=== PATIENT | female | born 1985 | race Hispanic/Latino ===

== ENCOUNTER 2019-09-21 11:43 | Observation (INO) | payer OTHER ==
[~2019-09-21] VITALS: Ht 157.5 cm; Wt 83.0 kg
[2019-09-21 12:33] VITALS: BP 112/72
[2019-09-21 13:05] LABS: HEMATOCRIT 27.8 % (36-48); MEAN CORPUSCULAR HEMOGLOBIN 20.7 pg (27.0-33.0); MEAN CORPUSCULAR HGB CONC 28.4 g/dL (32.0-36.0); MEAN CORPUSCULAR VOLUME 72.8 fL (79-99); PLATELET COUNT (AUTO) 332 K/uL (130-400); RED BLOOD CELL COUNT(AUTO) 3.82 MIL/uL (4.00-5.50); RED CELL DISTRIBUTION WIDTH 16.7 % (11.0-15.5); WHITE BLOOD COUNT (AUTO) 7.7 K/uL (4.8-10.8)
--- NOTE | 2019-09-21 13:56 | NUR ---
SPOKE WITH SAMANTHA FROM LAB TO VERIFY THAT ORDER FOR BLOOD WAS SEEN. ORDER FOR BLOOD SEEN AND WILL BE WORKED ON.
--- NOTE | 2019-09-21 14:52 | NUR ---
SPOKE WITH RASHMI FROM LAB TO CHECK STATUS OF BLOOD. BLOOD IS NOT READY AT THIS TIME. SOMEONE FROM [facility] WILL CALL WHEN READY.
[2019-09-21 16:22] VITALS: BP 132/76
--- NOTE | 2019-09-21 16:24 | NUR ---
TRANSFUSION STARTED AT THIS TIME. SYMPTOMS OF A TRANSFUSION REACTION REVIEWED WITH PATIENT. PATIENT VOICED UNDERSTANDING.
[2019-09-21] MEDS ORDERED: FERR-82 PO (16:31)
[2019-09-21] MEDS ORDERED: PNV1TABL17 PO (16:31)
--- NOTE | 2019-09-21 18:13 | NUR ---
SPOKE WITH ALCIDES SOOD. 2ND UNIT IS TO BE STARTED. NO H&H TO BE DRAWN. PATIENT TO BE DISCHARGED AFTER 2ND UNIT IS COMPLETE.
[2019-09-21 19:40] VITALS: BP 118/73
--- NOTE | 2019-09-21 22:00 | NUR ---
Blood Transfusion completed no untoward reaction noted. Discharges instruction given. Informed to go to [facility] for follow up check up on 09/29/19 if not delivered.
--- NOTE | 2019-09-21 22:10 | NUR ---
Patient discharges: Patient dicharges home by wheelchair accompanied by and wheeled out by Penelope Zhou CNA
--- NOTE | 2019-09-21 22:15 | NUR ---
PATIENT OUT: PATIENT OUT OF THE FACILITY ON THEIR PRIVATE CAR ON STABLE CONDITION.
== END 2019-09-21 22:15 | disposition home or self-care (01) ==
LOC: WSH 11:43
PROVIDERS: ADMIT Obstetrics & Gynecology; ATTEND Obstetrics & Gynecology
DX: O99.013 Anemia complicating pregnancy, third trimester (principal); D64.9 Anemia, unspecified; Z3A.39 39 weeks gestation of pregnancy
CPT/HCPCS: 36415; 36430; 85027; 86850; 86900; 86901; 86922 ×2; G0378 ×6; P9016 ×2

== ENCOUNTER 2019-09-23 03:34 | Inpatient (IN) | payer OTHER ==
[~2019-09-23] VITALS: Ht 160 cm; Wt 88.5 kg
[~2019-09-23 03:34] MED LIST: FERR-82 PO; PNV1TABL17 PO
[2019-09-23 05:15] VITALS: BP 118/56
[2019-09-23] MEDS ORDERED: PROMETHAZINE HCL 25 MG/ML 1ML AMPULE IM SCH (05:15)
[2019-09-23] MEDS ORDERED: MEPERIDINE-PF 50 MG/ML SYG IVP ONE (05:15)
[2019-09-23 05:16] VITALS: BP 118/56
[2019-09-23 05:17] LABS: HEMATOCRIT 33.8 % (36-48); MEAN CORPUSCULAR HEMOGLOBIN 22.2 pg (27.0-33.0); MEAN CORPUSCULAR HGB CONC 29.9 g/dL (32.0-36.0); MEAN CORPUSCULAR VOLUME 74.4 fL (79-99); PLATELET COUNT (AUTO) 301 K/uL (130-400); RED BLOOD CELL COUNT(AUTO) 4.54 MIL/uL (4.00-5.50); RED CELL DISTRIBUTION WIDTH 18.4 % (11.0-15.5); WHITE BLOOD COUNT (AUTO) 9.3 K/uL (4.8-10.8)
[2019-09-23 05:18] LABS: APPEARANCE,URINE Clear (CLEAR); BILIRUBIN,URINE Negative (NEGATIVE); COLOR,URINE Yellow (YELLOW); GLUCOSE, URINE (UA) Negative (NEGATIVE); KETONES,URINE Negative (NEGATIVE); LEUKOCYTE ESTERASE ,URINE Negative (NEGATIVE); NITRATE,URINE Negative (NEGATIVE); OCCULT BLOOD,URINE Negative (NEGATIVE); PROTEIN,URINE Negative (NEGATIVE); UROBILINOGEN,URINE 0.2 mg/dL (0.2-1.0)
[2019-09-23 05:20] LABS: AMPHET/METH SCREEN,URINE NEGATIVE (NEGATIVE); BARBITURATE SCREEN, URINE NEGATIVE (NEGATIVE); BENZODIAZEPINES SCREEN,URINE NEGATIVE (NEGATIVE); CANNABINOID SCREEN,URINE NEGATIVE (NEGATIVE); COCAINE SCREEN,URINE NEGATIVE (NEGATIVE); OPIATE SCREEN,URINE NEGATIVE (NEGATIVE); PHENCYCLIDINE SCREEN,URINE NEGATIVE (NEGATIVE)
[2019-09-23] MEDS: LACTATED RINGERS 1000ML 1,000 ML IV PRN ×2 (08:00→15:30)
[2019-09-23 10:26] LABS: RAPID PLASMA REAGIN NONREACTIVE (NONREACTIVE)
[2019-09-23] MEDS ORDERED: OXYTOCIN-LR 20 UNITS/1000 ML 1,000 ML IV ONE ×2 (16:22→19:53)
[2019-09-23] MEDS ORDERED: OXYTOCIN-LR 20 UNITS/1000 ML 1,000 ML IV SCH (20:45)
[2019-09-23] MEDS ORDERED: BENZOCAINE/LANOLIN/ALOE VERA 60 ML AEROSOL TP PRN (20:45)
[2019-09-23] MEDS ORDERED: LANOLIN 30GM OINTMENT TP PRN (20:45)
[2019-09-23] MEDS ORDERED: ACETAMINOPHEN 325 MG TAB PO PRN (20:45)
[2019-09-23] MEDS ORDERED: ACETAMINOPHEN-CODEINE 300/30MG TAB PO PRN (20:45)
[2019-09-23] MEDS ORDERED: WITCH HAZEL 1 PAD TP PRN (20:45)
--- NOTE | 2019-09-23 20:58 | NUR ---
Report received from Toshia Cid RN: Patient came in via wheelchair accompanied by Arian Corbin RN and family. Patient and Family oriented to room, call light given. Plan of care discussed with patient verbalizes understanding.
[2019-09-23 21:05] VITALS: BP 118/56
[2019-09-23] MEDS: DOCUSATE SODIUM 100 MG CAP PO SCH (21:51)
[2019-09-23 23:55] VITALS: BP 110/59
[2019-09-24 03:50] VITALS: BP 103/60
[2019-09-24] MEDS: IBUPROFEN 600 MG TABLET PO PRN ×3 (04:23→17:38)
[2019-09-24 05:19] LABS: HEMATOCRIT 32.9 % (36-48); MEAN CORPUSCULAR HEMOGLOBIN 22.1 pg (27.0-33.0); MEAN CORPUSCULAR HGB CONC 29.8 g/dL (32.0-36.0); MEAN CORPUSCULAR VOLUME 74.3 fL (79-99); PLATELET COUNT (AUTO) 287 K/uL (130-400); RED BLOOD CELL COUNT(AUTO) 4.43 MIL/uL (4.00-5.50); RED CELL DISTRIBUTION WIDTH 18.9 % (11.0-15.5); WHITE BLOOD COUNT (AUTO) 12.5 K/uL (4.8-10.8)
[2019-09-24 06:10] LABS: HEPATITIS Bs ANTIGEN SCREEN P Negative (Negative)
[2019-09-24 08:20] VITALS: BP 109/60
[2019-09-24] MEDS: DOCUSATE SODIUM 100 MG CAP PO SCH (09:26)
[2019-09-24 12:00] VITALS: BP 95/60
--- NOTE | 2019-09-24 14:00 | NUR ---
DR. FOSTER ROUNDED AND DISCHARGED PT TO HOME
[2019-09-24 18:02] VITALS: BP 100/60
--- NOTE | 2019-09-24 18:50 | NUR ---
PATIENT WAS TAKEN VIA W/C TO FAMILY VEHICLE IN STABLE CONDITION. PATIENT LEFT WITHOUT BABY DUE TO ELEVATED BILI.
[2019-09-24 19:30] VITALS: BP 112/77
== END 2019-09-24 19:50 | disposition home or self-care (01) | DRG 807 ==
LOC: EDH 03:34 → LDH 03:35 → OBSVTOIN 03:35 → INTOOBSV 03:35 → OBSVTOIN 19:36 → WSH 21:05
PROVIDERS: ADMIT Obstetrics & Gynecology; ATTEND Obstetrics & Gynecology
PROC: 10E0XZZ Delivery of Products of Conception, External Approach (ICD-10-PCS; principal; 2019-09-23)
DX: O77.0 Labor and delivery complicated by meconium in amniotic fluid (principal); Z37.0 Single live birth; Z3A.39 39 weeks gestation of pregnancy
CPT/HCPCS: 36415; 80305; 81003; 85027; 86592; 86701; 86850; 86900; 86901; 87340; 87390; G0378; J2590